=== PATIENT | female | born 1990 | race Hispanic/Latino ===

== ENCOUNTER 2021-06-15 05:34 | Emergency (ER) | payer SELFPAY ==
[2021-06-15] MEDS ORDERED: Ketorolac Tromethamine 30 MG/ML VIAL ONE (05:59)
[2021-06-15] MEDS ORDERED: Ondansetron PF 4 MG/2 ML Vial ONE (06:24)
[2021-06-15 06:39] LABS: #Basophils 0.1 10x3/uL (0.0-0.2); #Eosinphils 0.4 10x3/uL (0.0-0.5); #Monocytes 1.1 10x3/uL (0.0-1.1); #Neutrophils 9.3 10x3/uL (1.5-8.4); %Basophils 0.5 % (0.0-2.0); %Eosinophils 2.6 % (0.0-6.0); %Lymphocytes 20.1 % (18.0-47.0); %Monocytes 8.2 % (0.0-10.0); %Neutrophils 68.2 % (40.0-75.0); Hemoglobin 13.8 g/dL (12.0-15.5); Mean Corpuscular HGB CONC 32.5 g/dL (32.0-36.0); Mean Corpuscular Hemoglobin 25.8 pg (27.0-33.0); Mean Corpuscular Volume 79.4 fl (81.6-98.3); Mean Platelet Volume 10.8 fl (7.4-10.4); Platelet Count 298 10x3/uL (150-450); RBC Distribution Width 13.9 % (11.5-14.5); Red Blood Cell (RBC) Count 5.34 10x6/uL (3.90-5.03); White Blood Cell (WBC) Count 13.6 10x3/uL (3.5-10.5)
[2021-06-15 06:42] LABS: Bilirubin Neg (Negative); Blood, Urine 150 (Negative); Glucose, Urine (Dipstick) Normal (Negative); Ketone, Urine Negative (Negative); Leukocyte 500 (Negative); Nitrite Positive (Negative); Protein, Urine (Dipstick) 100 mg/dl (Neg-Trace); Specific Gravity, Urine 1.015 (1.002-1.036); Urobilinogen Normal mg/dL (Less than 2)
[2021-06-15 06:44] LABS: Clarity Clear (Clear); Pregnancy Test - Urine (BHCG) Negative (Negative); Pregu Control Background? CLEAR/WHITE (CLR/WHITE); Pregu Control Bar Appear? YES (CONTROL BAR); Specific Gravity 1.015 (1.002-1.036)
[2021-06-15 06:48] LABS: Bacteria/HPF 2+ HPF (None Seen); WBC/HPF Greater Than 50 HPF (0-3)
[2021-06-15 06:49] LABS: Squamous Epithelial 21-50 HPF (0-3)
[2021-06-15 07:00] LABS: ALT (SGPT) 46 U/L (8-55); AST (SGOT) 25 U/L (5-34); Albumin 3.9 g/dL (3.5-5.0); Alkaline Phosphatase 72 U/L (40-110); Anion Gap 15 mmol/L (10-20); BUN (Urea Nitrogen) 12 mg/dL (7.0-18.7); Bilirubin, Total 0.9 mg/dL (0.2-1.2); Calc. Creatinine Clearance 0 mL/min (70-130); Calcium 8.7 mg/dL (7.8-10.44); Carbon Dioxide 20 mmol/L (22-29); Chloride 107 mmol/L (98-107); Globulin 3.9 g/dL (2.4-3.5); Glucose 106 mg/dL (70-105); Protein, Total 7.8 g/dL (6.0-8.3); Sodium 138 mmol/L (136-145)
[2021-06-15] MEDS ORDERED: cefTRIAXone\\ROCEPHIN 2 GM VIAL ONE (08:04)
== END 2021-06-15 09:00 | disposition home or self-care (01) ==
LOC: CSHERS 05:34
DX: N10 Acute pyelonephritis (principal); N20.0 Calculus of kidney; R73.03 Prediabetes; Z79.899 Other long term (current) drug therapy
CPT/HCPCS: 74176; 80053; 81003; 81015; 81025; 85025; 96365; 96375; J0696; J1885; J2405

== ENCOUNTER 2021-07-01 17:45 | Inpatient (IN) | payer OTHER, SELFPAY ==
[2021-07-01 18:41] LABS: Bilirubin Neg (Negative); Blood, Urine 50 (Negative); Glucose, Urine (Dipstick) Normal (Negative); Ketone, Urine Negative (Negative); Leukocyte 500 (Negative); Nitrite Negative (Negative); Protein, Urine (Dipstick) Negative (Neg-Trace); Urobilinogen Normal mg/dL (Less than 2)
[2021-07-01 18:42] LABS: Clarity Clear (Clear)
[2021-07-01 18:47] LABS: Bacteria/HPF 3+ HPF (None Seen); Mucous/LPF 1+ LPF (<2+); RBC/HPF 0-3 HPF (0-3); WBC/HPF 21-50 HPF (0-3)
[2021-07-01 18:49] LABS: #Basophils 0.1 10x3/uL (0.0-0.2); #Eosinphils 0.2 10x3/uL (0.0-0.5); #Monocytes 0.9 10x3/uL (0.0-1.1); #Neutrophils 8.8 10x3/uL (1.5-8.4); %Basophils 0.5 % (0.0-2.0); %Eosinophils 1.8 % (0.0-6.0); %Lymphocytes 16.2 % (18.0-47.0); %Monocytes 7.4 % (0.0-10.0); %Neutrophils 73.4 % (40.0-75.0); Hemoglobin 12.3 g/dL (12.0-15.5); Mean Corpuscular HGB CONC 31.9 g/dL (32.0-36.0); Mean Corpuscular Hemoglobin 25.3 pg (27.0-33.0); Mean Corpuscular Volume 79.4 fl (81.6-98.3); Mean Platelet Volume 9.9 fl (7.4-10.4); Platelet Count 235 10x3/uL (150-450); RBC Distribution Width 13.6 % (11.5-14.5); Red Blood Cell (RBC) Count 4.86 10x6/uL (3.90-5.03); White Blood Cell (WBC) Count 11.9 10x3/uL (3.5-10.5)
[2021-07-01 19:02] LABS: ALT (SGPT) 39 U/L (8-55); AST (SGOT) 26 U/L (5-34); Albumin 3.6 g/dL (3.5-5.0); Alkaline Phosphatase 60 U/L (40-110); Anion Gap 13 mmol/L (10-20); BUN (Urea Nitrogen) 7 mg/dL (7.0-18.7); Bilirubin, Total 0.5 mg/dL (0.2-1.2); Calc. Creatinine Clearance 0 mL/min (70-130); Carbon Dioxide 21 mmol/L (22-29); Chloride 106 mmol/L (98-107); Globulin 3.3 g/dL (2.4-3.5); Glucose 96 mg/dL (70-105); Potassium 3.8 mmol/L (3.5-5.1); Protein, Total 6.9 g/dL (6.0-8.3); Sodium 136 mmol/L (136-145)
[2021-07-01] MEDS ORDERED: Cefepime 2 GM VIAL ONE (19:18)
[2021-07-01] MEDS ORDERED: Lactated Ringer's 1,000 ML IV SCH ×2 (23:45)
[2021-07-01 23:50] VITALS: BMI 39.4
[2021-07-01] MEDS ORDERED: [UNRECOGNIZED DRUG - OTHER] FS SCH (23:51)
[2021-07-01] MEDS ORDERED: Ondansetron ODT 4 MG TAB PO PRN (23:58)
[2021-07-01] MEDS ORDERED: Ondansetron PF 4 MG/2 ML Vial IVP PRN (23:58)
[2021-07-02] MEDS ORDERED: Cefepime 2 GM in Sodium Chloride 0.9% 100 ML IVPB SCH ×2 (00:15→12:00)
[2021-07-02] MEDS: Morphine 4 MG/ML VIAL SLOW IVP PRN ×4 (00:19→23:43)
[2021-07-02 00:54] LABS: BHCG - Serum Negative (NEGATIVE); Pregs Control Background? CLEAR/WHITE (CLR/WHITE); Pregs Control Bar Appear? YES (CONTROL BAR)
[2021-07-02] MEDS: NS 0.9% w/ 20 MEQ KCL 1,000 ML/1,000 ML BAG IV SCH ×3 (01:08→16:30)
[2021-07-02 01:22] LABS: SARS-CoV-2 NAA Rapid Test Not Detected (NotDetected)
[2021-07-02] MEDS: HYDROcodone/Acetaminophen 7.5/325 mg Tablet PO PRN ×3 (04:51→20:55)
[2021-07-02] MEDS: Cefepime 2 GM in Sodium Chloride 0.9% 100 ML IVPB SCH ×2 (05:42→17:42)
[2021-07-02 05:52] LABS: Anion Gap 13 mmol/L (10-20); BUN (Urea Nitrogen) 5 mg/dL (7.0-18.7); Calc. Creatinine Clearance 231 mL/min (70-130); Calcium 7.9 mg/dL (7.8-10.44); Carbon Dioxide 19 mmol/L (22-29); Chloride 108 mmol/L (98-107); Glucose 111 mg/dL (70-105); Magnesium 1.7 mg/dL (1.6-2.6); Potassium 4.1 mmol/L (3.5-5.1); Sodium 136 mmol/L (136-145)
[2021-07-02 06:28] LABS: #Basophils 0.1 10x3/uL (0.0-0.2); #Eosinphils 0.1 10x3/uL (0.0-0.5); #Monocytes 0.9 10x3/uL (0.0-1.1); #Neutrophils 8.9 10x3/uL (1.5-8.4); %Basophils 0.6 % (0.0-2.0); %Eosinophils 0.5 % (0.0-6.0); %Lymphocytes 19.4 % (18.0-47.0); %Monocytes 7.5 % (0.0-10.0); %Neutrophils 71.4 % (40.0-75.0); Hemoglobin 11.8 g/dL (12.0-15.5); Mean Corpuscular HGB CONC 32.6 g/dL (32.0-36.0); Mean Corpuscular Hemoglobin 25.4 pg (27.0-33.0); Mean Platelet Volume 11.4 fl (7.4-10.4); Platelet Count 207 10x3/uL (150-450); RBC Distribution Width 13.9 % (11.5-14.5); Red Blood Cell (RBC) Count 4.64 10x6/uL (3.90-5.03); White Blood Cell (WBC) Count 12.5 10x3/uL (3.5-10.5)
[2021-07-02 07:34] LABS: Platelet Morphology Comment Appears Adequate
[2021-07-02 07:37] LABS: Microcytosis SLIGHT = 6-15 cells (100X) (0-5/hpf)
[2021-07-02] MEDS ORDERED: Vancomycin HCl 1.75 GM in Sodium Chloride 0.9% 500 ML IVPB SCH (08:00)
[2021-07-02] MEDS: Enoxaparin Sodium 40 MG/0.4 ML SYRINGE SC SCH (08:25)
[2021-07-02] MEDS: Vancomycin HCl 1.5 GM in Sodium Chloride 0.9% 500 ML IVPB SCH ×3 (08:26→23:26)
[2021-07-02] MEDS ORDERED: Vancomycin HCl 2 GM in Sodium Chloride 0.9% 250 ML 300 ML IVPB SCH (12:00)
[2021-07-02 23:40] LABS: Vancomycin, Trough 16.4 ug/mL
[2021-07-03] MEDS: NS 0.9% w/ 20 MEQ KCL 1,000 ML/1,000 ML BAG IV SCH ×3 (02:57→22:01)
[2021-07-03] MEDS ORDERED: Ibuprofen 600 MG TAB PO SCH (03:30)
[2021-07-03] MEDS: Cefepime 2 GM in Sodium Chloride 0.9% 100 ML IVPB SCH ×2 (05:16→17:16)
[2021-07-03] MEDS: HYDROcodone/Acetaminophen 7.5/325 mg Tablet PO PRN ×4 (05:44→22:06)
[2021-07-03] MEDS ORDERED: Vancomycin 1.5 GRAM/300 ML BAG 1.5 GM in Premix Bag 1 BAG IVPB SCH (08:00)
[2021-07-03] MEDS: Morphine 4 MG/ML VIAL SLOW IVP PRN ×2 (08:17→14:15)
[2021-07-03] MEDS: Enoxaparin Sodium 40 MG/0.4 ML SYRINGE SC SCH (08:18)
[2021-07-03] MEDS ORDERED: FLU VACC QS2021-22(6MOS UP)/PF 60 MCG/0.5 ML SYRINGE IM ONE ×2 (09:00→11:20)
[2021-07-03] MEDS ORDERED: Senokot S 8.6-50 MG TAB PO SCH (11:15)
[2021-07-03] MEDS: Acetaminophen 325 MG TAB PO PRN (21:56)
[2021-07-04] MEDS: NS 0.9% w/ 20 MEQ KCL 1,000 ML/1,000 ML BAG IV SCH ×2 (03:23→09:38)
[2021-07-04] MEDS: Acetaminophen 325 MG TAB PO PRN (03:38)
[2021-07-04] MEDS: HYDROcodone/Acetaminophen 7.5/325 mg Tablet PO PRN (05:11)
[2021-07-04] MEDS: Cefepime 2 GM in Sodium Chloride 0.9% 100 ML IVPB SCH (05:11)
[2021-07-04 05:57] LABS: #Basophils 0.1 10x3/uL (0.0-0.2); #Eosinphils 0.3 10x3/uL (0.0-0.5); #Monocytes 0.8 10x3/uL (0.0-1.1); #Neutrophils 5.5 10x3/uL (1.5-8.4); %Basophils 0.6 % (0.0-2.0); %Eosinophils 3.4 % (0.0-6.0); %Lymphocytes 21.8 % (18.0-47.0); %Monocytes 9.3 % (0.0-10.0); %Neutrophils 64.3 % (40.0-75.0); Hemoglobin 11.5 g/dL (12.0-15.5); Mean Corpuscular HGB CONC 31.9 g/dL (32.0-36.0); Mean Corpuscular Hemoglobin 25.2 pg (27.0-33.0); Mean Corpuscular Volume 79.2 fl (81.6-98.3); Mean Platelet Volume 9.6 fl (7.4-10.4); Platelet Count 233 10x3/uL (150-450); RBC Distribution Width 13.8 % (11.5-14.5); Red Blood Cell (RBC) Count 4.56 10x6/uL (3.90-5.03); White Blood Cell (WBC) Count 8.6 10x3/uL (3.5-10.5)
[2021-07-04 06:01] LABS: Anion Gap 10 mmol/L (10-20); BUN (Urea Nitrogen) 6 mg/dL (7.0-18.7); Calc. Creatinine Clearance 227 mL/min (70-130); Calcium 8.4 mg/dL (7.8-10.44); Carbon Dioxide 25 mmol/L (22-29); Chloride 107 mmol/L (98-107); Glucose 98 mg/dL (70-105); Potassium 3.9 mmol/L (3.5-5.1); Sodium 138 mmol/L (136-145)
[2021-07-04 08:00] VITALS: BP 135/78; TEMP 97.8
[2021-07-04] MEDS ORDERED: Polyethylene Glycol 3350 17 GM Packet PO SCH (09:00)
[2021-07-04] MEDS: Enoxaparin Sodium 40 MG/0.4 ML SYRINGE SC SCH (09:38)
== END 2021-07-04 11:55 | disposition home or self-care (01) | DRG 872 ==
LOC: CSHERS 17:45 → CSHTELE 22:27
PROVIDERS: ADMIT Family Medicine; ATTEND Internal Medicine
DX: A41.9 Sepsis, unspecified organism (principal); N10 Acute pyelonephritis; R10.821 Right upper quadrant rebound abdominal tenderness; E66.9 Obesity, unspecified; K76.0 Fatty (change of) liver, not elsewhere classified; K21.9 Gastro-esophageal reflux disease without esophagitis; N20.0 Calculus of kidney; Z20.822 Contact with and (suspected) exposure to COVID-19; B96.20 Unspecified Escherichia coli [E. coli] as the cause of diseases classified elsewhere; Z98.890 Other specified postprocedural states; Z68.39 Body mass index [BMI] 39.0-39.9, adult
CPT/HCPCS: 36415; 36416; 71045; 76705; 80048; 80053; 80202; 81003; 81015; 83605; 83735; 84703; 85025; 87040; 87077; 87086; 87186; 90471; 90686; 93005; 93010; 96365; G0008; J0692; J1650; J2270; J3370; J3480; J3490; J7030; J7120; Q0162; U0002

== ENCOUNTER 2021-10-05 12:36 | Inpatient (IN) | payer SELFPAY ==
[~2021-10-05 12:36] MED LIST: Iopamidol 300 61% 100 ML VIAL FS ONE
[2021-10-05] MEDS ORDERED: Ondansetron PF 4 MG/2 ML Vial ONE (13:04)
[2021-10-05] MEDS ORDERED: Ketorolac Tromethamine 30 MG/ML VIAL ONE (13:04)
[2021-10-05 13:44] LABS: #Basophils 0.1 10x3/uL (0.0-0.2); #Monocytes 0.8 10x3/uL (0.0-1.1); %Basophils 0.4 % (0.0-2.0); %Eosinophils 0.2 % (0.0-6.0); %Lymphocytes 4.8 % (18.0-47.0); %Monocytes 4.1 % (0.0-10.0); %Neutrophils 89.9 % (40.0-75.0); Hemoglobin 14.6 g/dL (12.0-15.5); Mean Corpuscular HGB CONC 33.7 g/dL (32.0-36.0); Mean Corpuscular Hemoglobin 25.9 pg (27.0-33.0); Mean Corpuscular Volume 76.9 fl (81.6-98.3); Mean Platelet Volume 10.2 fl (7.4-10.4); Platelet Count 259 10x3/uL (150-450); Red Blood Cell (RBC) Count 5.63 10x6/uL (3.90-5.03); White Blood Cell (WBC) Count 18.9 10x3/uL (3.5-10.5)
[2021-10-05 13:49] LABS: BHCG - Serum Negative (NEGATIVE); Pregs Control Background? CLEAR/WHITE (CLR/WHITE); Pregs Control Bar Appear? YES (CONTROL BAR)
[2021-10-05 13:57] LABS: ALT (SGPT) 31 U/L (8-55); AST (SGOT) 19 U/L (5-34); Albumin 4.5 g/dL (3.5-5.0); Alkaline Phosphatase 73 U/L (40-110); Anion Gap 16 mmol/L (10-20); BUN (Urea Nitrogen) 8 mg/dL (7.0-18.7); Calc. Creatinine Clearance 0 mL/min (70-130); Calcium 9.5 mg/dL (7.8-10.44); Carbon Dioxide 21 mmol/L (22-29); Chloride 103 mmol/L (98-107); Globulin 4.3 g/dL (2.4-3.5); Glucose 112 mg/dL (70-105); Potassium 3.5 mmol/L (3.5-5.1); Protein, Total 8.8 g/dL (6.0-8.3); Sodium 136 mmol/L (136-145)
[2021-10-05] MEDS ORDERED: Bicillin LA 1.2 MILLION UNITS/2 ML SYRINGE ONE (14:52)
[2021-10-05 14:59] LABS: Bilirubin Neg (Negative); Blood, Urine 250 (Negative); Clarity Clear (Clear); Glucose, Urine (Dipstick) Normal (Negative); Ketone, Urine 50 mg/dL (Negative); Leukocyte Negative (Negative); Nitrite Negative (Negative); Protein, Urine (Dipstick) 30 mg/dl (Neg-Trace); Specific Gravity, Urine 1.015 (1.002-1.036); Urobilinogen Normal mg/dL (Less than 2)
[2021-10-05 15:06] LABS: RBC/HPF 0-3 HPF (0-3); Squamous Epithelial 0-3 HPF (0-3); WBC/HPF 0-3 HPF (0-3)
[2021-10-05 15:07] LABS: Bacteria/HPF 1+ HPF (None Seen); Mucous/LPF 1+ LPF (<2+)
[2021-10-05] MEDS ORDERED: Acetaminophen 500 MG TAB ONE (16:38)
[2021-10-05] MEDS ORDERED: Calcium Carbonate 500 MG ChewTAB PO PRN (20:39)
[2021-10-05] MEDS ORDERED: Guaifenesin DM 100-10/5 ML UDCUP PO PRN (20:39)
[2021-10-05] MEDS ORDERED: Senokot S 8.6-50 MG TAB PO PRN (20:39)
[2021-10-05] MEDS ORDERED: Zolpidem Tartrate 5 MG TAB PO PRN (20:39)
[2021-10-05] MEDS ORDERED: Morphine 2 MG/ML VIAL SLOW IVP PRN (20:43)
[2021-10-05] MEDS ORDERED: Dexamethasone 20 MG/5 ML VIAL SLOW IVP SCH (20:45)
[2021-10-05] MEDS: Lactated Ringer's 1,000 ML IV SCH (21:24)
[2021-10-05] MEDS: Ampicillin/Sulbactam 3 GM in Sodium Chloride 0.9% 100 ML IVPB SCH (21:25)
[2021-10-05] MEDS: Famotidine/PF 20 mg/2ml Vial SLOW IVP SCH (21:25)
[2021-10-05] MEDS: Ondansetron PF 4 MG/2 ML Vial IVP PRN (21:25)
[2021-10-05] MEDS: Ketorolac Tromethamine 30 MG/ML VIAL IVP SCH (21:26)
[2021-10-05 22:17] VITALS: BMI 42.5
[2021-10-05] MEDS: HYDROcodone/Acetaminophen 5/325 mg Tablet PO PRN (23:55)
[2021-10-06] MEDS: HYDROcodone/Acetaminophen 5/325 mg Tablet PO PRN ×4 (03:00→21:11)
[2021-10-06] MEDS: Ampicillin/Sulbactam 3 GM in Sodium Chloride 0.9% 100 ML IVPB SCH (03:49)
[2021-10-06 05:09] LABS: Hemoglobin 12.4 g/dL (12.0-15.5); Mean Corpuscular HGB CONC 33.5 g/dL (32.0-36.0); Mean Corpuscular Hemoglobin 25.7 pg (27.0-33.0); Mean Corpuscular Volume 76.6 fl (81.6-98.3); Mean Platelet Volume 10.7 fl (7.4-10.4); Platelet Count 222 10x3/uL (150-450); Red Blood Cell (RBC) Count 4.83 10x6/uL (3.90-5.03); White Blood Cell (WBC) Count 22.5 10x3/uL (3.5-10.5)
[2021-10-06 05:18] LABS: Anion Gap 16 mmol/L (10-20); BUN (Urea Nitrogen) 5 mg/dL (7.0-18.7); CRP (Inflammatory) 22.16 mg/dL (= or < 0.5); Calc. Creatinine Clearance 211 mL/min (70-130); Calcium 8.7 mg/dL (7.8-10.44); Carbon Dioxide 15 mmol/L (22-29); Chloride 108 mmol/L (98-107); Glucose 147 mg/dL (70-105); Potassium 3.4 mmol/L (3.5-5.1); Sodium 136 mmol/L (136-145)
[2021-10-06 05:47] LABS: MDiff Complete? YES
[2021-10-06 05:50] LABS: Band 30 % (5-11); Lymphocytes 6 % (21-51); Monocytes 3 % (0-10); Neutrophil 60 % (42-75)
[2021-10-06 05:52] LABS: Eosinophils 1 % (0-10)
[2021-10-06 05:54] LABS: Platelet Morphology Comment Appears Adequate; RBC Morphology Normal
[2021-10-06] MEDS: Ketorolac Tromethamine 30 MG/ML VIAL IVP SCH (06:39)
[2021-10-06] MEDS: Lactated Ringer's 1,000 ML IV SCH ×3 (06:40→21:00)
[2021-10-06] MEDS ORDERED: Meropenem 1 GM in Sodium Chloride 0.9% 100 ML IVPB SCH (08:45)
[2021-10-06] MEDS ORDERED: Vancomycin 1.5 GM in Premix Bag 1 BAG IVPB SCH (09:00)
[2021-10-06] MEDS ORDERED: Dexamethasone 20 MG/5 ML VIAL SLOW IVP SCH ×2 (09:00→21:00)
[2021-10-06] MEDS: Enoxaparin Sodium 40 MG/0.4 ML SYRINGE SC SCH (09:48)
[2021-10-06] MEDS: Famotidine/PF 20 mg/2ml Vial SLOW IVP SCH ×2 (09:48→21:09)
[2021-10-06] MEDS: Clindamycin/D5W 900 MG in Premix Bag 1 BAG IVPB SCH ×2 (09:50→17:48)
[2021-10-06] MEDS ORDERED: Vancomycin HCl 1.5 GM in Sodium Chloride 0.9% 250 ML 300 ML IVPB SCH ×2 (10:00→12:00)
[2021-10-06 11:43] LABS: Hemoglobin A1c 5.8 % (4.0-6.0)
[2021-10-06] MEDS: Meropenem 1 GM in Sodium Chloride 0.9% 100 ML IVPB SCH (17:46)
[2021-10-06] MEDS: Ondansetron PF 4 MG/2 ML Vial IVP PRN (18:12)
[2021-10-06] MEDS ORDERED: Dexamethasone 10 MG in Sodium Chloride 0.9% 50 ML IVPB SCH (21:00)
[2021-10-06] MEDS: Vancomycin HCl 1 GM in Sodium Chloride 0.9% 250 ML 250 ML IVPB SCH (21:09)
[2021-10-07] MEDS: Clindamycin/D5W 900 MG in Premix Bag 1 BAG IVPB SCH ×3 (00:20→16:21)
[2021-10-07] MEDS: Meropenem 1 GM in Sodium Chloride 0.9% 100 ML IVPB SCH ×3 (00:59→16:21)
[2021-10-07] MEDS: HYDROcodone/Acetaminophen 5/325 mg Tablet PO PRN ×3 (03:59→19:42)
[2021-10-07] MEDS: Vancomycin HCl 1 GM in Sodium Chloride 0.9% 250 ML 250 ML IVPB SCH ×3 (04:55→21:30)
[2021-10-07] MEDS: Lactated Ringer's 1,000 ML IV SCH ×3 (05:00→21:19)
[2021-10-07 05:22] LABS: Hemoglobin 11.6 g/dL (12.0-15.5); Mean Corpuscular HGB CONC 33.7 g/dL (32.0-36.0); Mean Corpuscular Hemoglobin 25.8 pg (27.0-33.0); Mean Corpuscular Volume 76.4 fl (81.6-98.3); Mean Platelet Volume 10.3 fl (7.4-10.4); Platelet Count 232 10x3/uL (150-450); RBC Distribution Width 13.9 % (11.5-14.5); White Blood Cell (WBC) Count 17.8 10x3/uL (3.5-10.5)
[2021-10-07 05:38] LABS: ALT (SGPT) 21 U/L (8-55); AST (SGOT) 17 U/L (5-34); Albumin 3.4 g/dL (3.5-5.0); Alkaline Phosphatase 68 U/L (40-110); Anion Gap 15 mmol/L (10-20); BUN (Urea Nitrogen) 10 mg/dL (7.0-18.7); Bilirubin, Direct 0.2 mg/dL (0.1-0.3); Bilirubin, Total 0.4 mg/dL (0.2-1.2); CRP (Inflammatory) 20.31 mg/dL (= or < 0.5); Calc. Creatinine Clearance 222 mL/min (70-130); Calcium 8.7 mg/dL (7.8-10.44); Carbon Dioxide 19 mmol/L (22-29); Cardiac Risk 5.6 (Less than 4.5); Chloride 107 mmol/L (98-107); Cholesterol 190 mg/dl (< 200 Desired); Glucose 137 mg/dL (70-105); HDL Cholesterol 34 mg/dL (>60 Neg Risk); LDL Cholesterol, Calculated 121 mg/dL; Magnesium 1.9 mg/dL (1.6-2.6); Potassium 3.8 mmol/L (3.5-5.1); Sodium 137 mmol/L (136-145); Triglycerides 175 mg/dL (Less than 150)
[2021-10-07 05:47] LABS: MDiff Complete? YES
[2021-10-07 05:49] LABS: Band 23 % (5-11); Lymphocytes 6 % (21-51); Monocytes 2 % (0-10); Neutrophil 69 % (42-75)
[2021-10-07 05:50] LABS: Platelet Morphology Comment Appears Adequate
[2021-10-07 05:51] LABS: RBC Morphology Normal
[2021-10-07] MEDS: Dexamethasone 20 MG/5 ML VIAL SLOW IVP SCH (09:20)
[2021-10-07] MEDS: Famotidine/PF 20 mg/2ml Vial SLOW IVP SCH ×2 (09:20→21:21)
[2021-10-07] MEDS: Enoxaparin Sodium 40 MG/0.4 ML SYRINGE SC SCH (09:21)
[2021-10-07] MEDS: Ondansetron PF 4 MG/2 ML Vial IVP PRN (10:45)
[2021-10-07 11:28] LABS: Vancomycin, Trough 13.9 ug/mL
[2021-10-07] MEDS: Cepastat Lozenges 1 LOZ PO PRN ×2 (16:34→19:47)
[2021-10-07] MEDS: ALUMINUM SSP SCH (21:34)
[2021-10-07] MEDS: MAGNESIUM HYDROXIDE SSP SCH (21:34)
[2021-10-07] MEDS: VISCOUS SSP SCH (21:34)
[2021-10-07] MEDS: LIDOCAINE SSP SCH (21:34)
[2021-10-07] MEDS: [UNRECOGNIZED DRUG - OTHER] SSP SCH (21:34)
[2021-10-08] MEDS: Clindamycin/D5W 900 MG in Premix Bag 1 BAG IVPB SCH ×3 (00:17→17:05)
[2021-10-08] MEDS: Meropenem 1 GM in Sodium Chloride 0.9% 100 ML IVPB SCH (00:52)
[2021-10-08] MEDS: Lactated Ringer's 1,000 ML IV SCH ×2 (05:34→11:50)
[2021-10-08 06:09] LABS: Anion Gap 16 mmol/L (10-20); BUN (Urea Nitrogen) 13 mg/dL (7.0-18.7); Calc. Creatinine Clearance 208 mL/min (70-130); Calcium 8.5 mg/dL (7.8-10.44); Carbon Dioxide 20 mmol/L (22-29); Chloride 108 mmol/L (98-107); Glucose 108 mg/dL (70-105); Potassium 3.7 mmol/L (3.5-5.1); Sodium 140 mmol/L (136-145)
[2021-10-08] MEDS: HYDROcodone/Acetaminophen 5/325 mg Tablet PO PRN ×4 (06:48→23:20)
[2021-10-08 07:12] LABS: #Basophils 0.1 10x3/uL (0.0-0.2); #Monocytes 0.8 10x3/uL (0.0-1.1); #Neutrophils 10.9 10x3/uL (1.5-8.4); %Basophils 0.3 % (0.0-2.0); %Lymphocytes 19.4 % (18.0-47.0); %Monocytes 5.3 % (0.0-10.0); %Neutrophils 73.6 % (40.0-75.0); Hemoglobin 11.9 g/dL (12.0-15.5); Mean Corpuscular HGB CONC 33.9 g/dL (32.0-36.0); Mean Corpuscular Hemoglobin 25.6 pg (27.0-33.0); Mean Corpuscular Volume 75.5 fl (81.6-98.3); Platelet Count 292 10x3/uL (150-450); RBC Distribution Width 14.2 % (11.5-14.5); Red Blood Cell (RBC) Count 4.65 10x6/uL (3.90-5.03); White Blood Cell (WBC) Count 14.8 10x3/uL (3.5-10.5)
[2021-10-08] MEDS: Vancomycin HCl 1 GM in Sodium Chloride 0.9% 250 ML 250 ML IVPB SCH (08:03)
[2021-10-08] MEDS: Dexamethasone 20 MG/5 ML VIAL SLOW IVP SCH (08:16)
[2021-10-08] MEDS: Famotidine/PF 20 mg/2ml Vial SLOW IVP SCH ×2 (08:16→21:33)
[2021-10-08] MEDS: Enoxaparin Sodium 40 MG/0.4 ML SYRINGE SC SCH (08:17)
[2021-10-08] MEDS: ALUMINUM SSP SCH ×4 (08:20→21:31)
[2021-10-08] MEDS: [UNRECOGNIZED DRUG - OTHER] SSP SCH ×4 (08:20→21:31)
[2021-10-08] MEDS: MAGNESIUM HYDROXIDE SSP SCH ×4 (08:20→21:31)
[2021-10-08] MEDS: VISCOUS SSP SCH ×4 (08:20→21:31)
[2021-10-08] MEDS: LIDOCAINE SSP SCH ×4 (08:20→21:31)
[2021-10-08] MEDS ORDERED: Benzocaine 20% Spray 60 ML CAN PO SCH (08:45)
[2021-10-08 11:19] LABS: Vancomycin, Trough 5.2 ug/mL
[2021-10-08] MEDS: Ampicillin/Sulbactam 3 GM in Sodium Chloride 0.9% 100 ML IVPB SCH ×2 (11:51→19:22)
[2021-10-09] MEDS: Ampicillin/Sulbactam 3 GM in Sodium Chloride 0.9% 100 ML IVPB SCH ×5 (00:12→23:48)
[2021-10-09] MEDS: Clindamycin/D5W 900 MG in Premix Bag 1 BAG IVPB SCH ×4 (01:09→23:48)
[2021-10-09] MEDS: Lactated Ringer's 1,000 ML IV SCH (01:18)
[2021-10-09 04:14] LABS: #Basophils 0.1 10x3/uL (0.0-0.2); #Monocytes 0.8 10x3/uL (0.0-1.1); #Neutrophils 6.5 10x3/uL (1.5-8.4); %Basophils 0.4 % (0.0-2.0); %Lymphocytes 32.5 % (18.0-47.0); %Monocytes 7.3 % (0.0-10.0); %Neutrophils 57.3 % (40.0-75.0); Hemoglobin 12.2 g/dL (12.0-15.5); Mean Corpuscular HGB CONC 33.7 g/dL (32.0-36.0); Mean Corpuscular Hemoglobin 25.7 pg (27.0-33.0); Mean Corpuscular Volume 76.4 fl (81.6-98.3); Mean Platelet Volume 10.2 fl (7.4-10.4); Platelet Count 315 10x3/uL (150-450); Red Blood Cell (RBC) Count 4.74 10x6/uL (3.90-5.03); White Blood Cell (WBC) Count 11.3 10x3/uL (3.5-10.5)
[2021-10-09 04:32] LABS: Anion Gap 14 mmol/L (10-20); BUN (Urea Nitrogen) 10 mg/dL (7.0-18.7); Calc. Creatinine Clearance 205 mL/min (70-130); Calcium 8.3 mg/dL (7.8-10.44); Carbon Dioxide 26 mmol/L (22-29); Chloride 104 mmol/L (98-107); Glucose 117 mg/dL (70-105); Potassium 3.5 mmol/L (3.5-5.1); Sodium 140 mmol/L (136-145)
[2021-10-09] MEDS: Ondansetron PF 4 MG/2 ML Vial IVP PRN (06:08)
[2021-10-09] MEDS: HYDROcodone/Acetaminophen 5/325 mg Tablet PO PRN (06:25)
[2021-10-09] MEDS: Famotidine/PF 20 mg/2ml Vial SLOW IVP SCH ×2 (07:44→22:14)
[2021-10-09] MEDS: [UNRECOGNIZED DRUG - OTHER] SSP SCH ×4 (07:46→22:03)
[2021-10-09] MEDS: MAGNESIUM HYDROXIDE SSP SCH ×4 (07:46→22:03)
[2021-10-09] MEDS: Enoxaparin Sodium 40 MG/0.4 ML SYRINGE SC SCH (07:46)
[2021-10-09] MEDS: LIDOCAINE SSP SCH ×4 (07:46→22:03)
[2021-10-09] MEDS: VISCOUS SSP SCH ×4 (07:46→22:03)
[2021-10-09] MEDS: ALUMINUM SSP SCH ×4 (07:46→22:03)
[2021-10-09] MEDS ORDERED: Lisinopril 5 MG TAB PO SCH (09:30)
[2021-10-09] MEDS ORDERED: Lisinopril 2.5 MG TAB PO SCH (09:30)
[2021-10-09] MEDS ORDERED: Potassium Chloride 20 MEQ TAB PO SCH (10:00)
[2021-10-09] MEDS ORDERED: Spironolactone 25 MG TAB PO SCH (10:15)
[2021-10-09] MEDS: Metoprolol Tartrate 25 MG TAB PO SCH ×2 (12:14→22:04)
[2021-10-09] MEDS: Acetaminophen 325 MG TAB PO PRN ×2 (14:43→19:07)
[2021-10-09] MEDS ORDERED: diphenhydrAMINE 12.5 MG/5 ML UDCUP ONE (20:47)
[2021-10-10 04:50] LABS: Anion Gap 18 mmol/L (10-20); BUN (Urea Nitrogen) 10 mg/dL (7.0-18.7); Calc. Creatinine Clearance 205 mL/min (70-130); Calcium 8.3 mg/dL (7.8-10.44); Carbon Dioxide 22 mmol/L (22-29); Chloride 104 mmol/L (98-107); Glucose 83 mg/dL (70-105); Magnesium 1.9 mg/dL (1.6-2.6); Potassium 3.6 mmol/L (3.5-5.1); Sodium 140 mmol/L (136-145)
[2021-10-10 05:18] LABS: Platelet Count 287 10x3/uL (150-450)
[2021-10-10 05:19] LABS: #Basophils 0.1 10x3/uL (0.0-0.2); #Eosinphils 0.1 10x3/uL (0.0-0.5); #Monocytes 0.7 10x3/uL (0.0-1.1); #Neutrophils 3.6 10x3/uL (1.5-8.4); %Basophils 0.8 % (0.0-2.0); %Eosinophils 0.8 % (0.0-6.0); %Lymphocytes 49.9 % (18.0-47.0); %Monocytes 7.1 % (0.0-10.0); %Neutrophils 36.8 % (40.0-75.0); Hemoglobin 13.6 g/dL (12.0-15.5); Mean Corpuscular HGB CONC 33.8 g/dL (32.0-36.0); Mean Corpuscular Hemoglobin 25.6 pg (27.0-33.0); Mean Corpuscular Volume 75.6 fl (81.6-98.3); Mean Platelet Volume 11.7 fl (7.4-10.4); RBC Distribution Width 14.2 % (11.5-14.5); Red Blood Cell (RBC) Count 5.32 10x6/uL (3.90-5.03); White Blood Cell (WBC) Count 9.9 10x3/uL (3.5-10.5)
[2021-10-10 06:08] LABS: Platelet Morphology Comment PLT clumps seen-ADEQ; RBC Morphology Normal
[2021-10-10] MEDS: Ampicillin/Sulbactam 3 GM in Sodium Chloride 0.9% 100 ML IVPB SCH ×2 (06:35→13:04)
[2021-10-10] MEDS ORDERED: Potassium Chloride 20 MEQ TAB PO SCH (08:00)
[2021-10-10] MEDS ORDERED: Magnesium 2 GM/50 ML(in water) 2 GM in Premix Bag 1 BAG IVPB SCH (08:00)
[2021-10-10] MEDS ORDERED: Spironolactone 25 MG TAB PO SCH (08:00)
[2021-10-10] MEDS: LIDOCAINE SSP SCH ×2 (08:34→13:18)
[2021-10-10] MEDS: [UNRECOGNIZED DRUG - OTHER] SSP SCH ×2 (08:34→13:18)
[2021-10-10] MEDS: ALUMINUM SSP SCH ×2 (08:34→13:18)
[2021-10-10] MEDS: MAGNESIUM HYDROXIDE SSP SCH ×2 (08:34→13:18)
[2021-10-10] MEDS: Clindamycin/D5W 900 MG in Premix Bag 1 BAG IVPB SCH (08:34)
[2021-10-10] MEDS: VISCOUS SSP SCH ×2 (08:34→13:18)
[2021-10-10] MEDS: Enoxaparin Sodium 40 MG/0.4 ML SYRINGE SC SCH (08:35)
[2021-10-10] MEDS: Metoprolol Tartrate 25 MG TAB PO SCH (08:35)
[2021-10-10] MEDS ORDERED: Lisinopril 5 MG TAB PO SCH (09:00)
[2021-10-10] MEDS ORDERED: Famotidine 20 MG TAB PO SCH (09:00)
[2021-10-10] MEDS ORDERED: Aspirin 325 mg Enteric Coated Tablet PO SCH (10:00)
[2021-10-10 10:47] LABS: Troponin I Less than 0.010 ng/mL (< 0.028)
[2021-10-10 12:07] VITALS: BP 119/80; TEMP 97.9
[2021-10-10 13:29] LABS: Troponin I Less than 0.010 ng/mL (< 0.028)
[2021-10-10] MEDS ORDERED: Atorvastatin Calcium 40 MG TAB PO SCH (21:00)
[2021-10-12] MEDS ORDERED: Aspirin 81 mg Enteric Coated Tablet PO SCH (09:00)
== END 2021-10-10 16:00 | disposition home or self-care (01) | DRG 871 ==
LOC: CSHERS 12:36 → CSHTELE 19:59
PROVIDERS: ADMIT Family Medicine; ATTEND Family Medicine
DX: A40.0 Sepsis due to streptococcus, group A (principal); I50.21 Acute systolic (congestive) heart failure; Z68.41 Body mass index [BMI] 40.0-44.9, adult; I42.9 Cardiomyopathy, unspecified; J02.0 Streptococcal pharyngitis; H92.02 Otalgia, left ear; R73.03 Prediabetes; E86.0 Dehydration; R73.9 Hyperglycemia, unspecified; E66.01 Morbid (severe) obesity due to excess calories; D50.9 Iron deficiency anemia, unspecified; I11.0 Hypertensive heart disease with heart failure; E87.6 Hypokalemia; Z20.822 Contact with and (suspected) exposure to COVID-19; Z79.2 Long term (current) use of antibiotics; Z79.899 Other long term (current) drug therapy; Z79.891 Long term (current) use of opiate analgesic; Z98.890 Other specified postprocedural states; Z86.16 Personal history of COVID-19; Z82.49 Family history of ischemic heart disease and other diseases of the circulatory system; Z82.3 Family history of stroke
CPT/HCPCS: 36415; 36416; 70491; 71045; 80048; 80053; 80061; 80076; 80202; 81003; 81015; 83036; 83540; 83605; 83735; 83880; 84145; 84443; 84484; 84703; 85025; 86140; 87040; 87081; 87430; 93005; 93010; 93306; 96361; 96372; 96374; 96375; J0295; J0561; J1100; J1650; J1885; J2185; J2405; J3370; J3475; J3490; J7050; J7120; Q0163; Q9967; S0028; U0003; U0005

== ENCOUNTER 2023-05-10 04:12 | Emergency (ER) | payer SELFPAY ==
[2023-05-10] MEDS ORDERED: Ibuprofen 200 MG TAB ONE (05:02)
[2023-05-10] MEDS ORDERED: guaiFENesin ER 600 MG TAB PO SCH (05:15)
[2023-05-10 06:06] LABS: ALT (SGPT) 44 U/L (8-55); Albumin 3.8 g/dL (3.5-5.0); Alkaline Phosphatase 63 U/L (40-110); Anion Gap 18 mmol/L (10-20); BUN (Urea Nitrogen) 11 mg/dL (7.0-18.7); Bilirubin, Total 0.3 mg/dL (0.2-1.2); Calc. Creatinine Clearance 0 mL/min (70-130); Calcium 8.7 mg/dL (7.8-10.44); Carbon Dioxide 18 mmol/L (22-29); Chloride 107 mmol/L (98-107); Estimated GFR 112; Globulin 4.1 g/dL (2.4-3.5); Glucose 89 mg/dL (70-105); Potassium 3.5 mmol/L (3.5-5.1); Protein, Total 7.9 g/dL (6.0-8.3); Sodium 139 mmol/L (136-145)
[2023-05-10 06:11] LABS: AST (SGOT) 34 U/L (5-34); Magnesium 1.8 mg/dL (1.6-2.6)
[2023-05-10 06:12] LABS: #Basophils 0.1 10x3/uL (0.0-0.2); #Eosinphils 0.1 10x3/uL (0.0-0.5); #Neutrophils 4.5 10x3/uL (1.5-8.4); %Basophils 0.7 % (0.0-2.0); %Eosinophils 0.7 % (0.0-6.0); %Lymphocytes 31.8 % (18.0-47.0); %Monocytes 11.6 % (0.0-10.0); %Neutrophils 54.8 % (40.0-75.0); Hematocrit 41.7 % (34.9-44.5); Hemoglobin 13.6 g/dL (12.0-15.5); Mean Corpuscular HGB CONC 32.6 g/dL (32.0-36.0); Mean Corpuscular Hemoglobin 25.4 pg (27.0-33.0); Mean Corpuscular Volume 77.8 fl (81.6-98.3); Mean Platelet Volume 11.1 fl (7.4-10.4); Platelet Count 248 10x3/uL (150-450); RBC Distribution Width 13.8 % (11.5-14.5); Red Blood Cell (RBC) Count 5.36 10x6/uL (3.90-5.03); White Blood Cell (WBC) Count 8.2 10x3/uL (3.5-10.5)
[2023-05-10 08:16] LABS: BHCG - Serum Negative (NEGATIVE); Pregs Control Background? CLEAR/WHITE (CLR/WHITE); Pregs Control Bar Appear? YES (CONTROL BAR)
== END 2023-05-10 08:57 | disposition home or self-care (01) ==
LOC: CSHERS 04:12
DX: J06.9 Acute upper respiratory infection, unspecified (principal); I11.0 Hypertensive heart disease with heart failure; I50.9 Heart failure, unspecified; Z79.899 Other long term (current) drug therapy
CPT/HCPCS: 36415; 71045; 80053; 83605; 83735; 84703; 85025

== ENCOUNTER 2024-02-02 09:03 | Emergency (ER) | payer SELFPAY ==
[2024-02-02 10:00] LABS: #Basophils 0.06 10x3/uL (0.0-0.2); #Eosinphils 0.22 10x3/uL (0.0-0.5); #Monocytes 0.55 10x3/uL (0.0-1.1); #Neutrophils 5.22 10x3/uL (1.5-8.4); %Basophils 0.7 % (0.0-2.0); %Eosinophils 2.6 % (0.0-6.0); %Lymphocytes 27.5 % (18.0-47.0); %Monocytes 6.6 % (0.0-10.0); %Neutrophils 62.2 % (40.0-75.0); Hematocrit 39.4 % (34.9-44.5); Hemoglobin 12.3 g/dL (12.0-15.5); Mean Corpuscular HGB CONC 31.2 g/dL (32.0-36.0); Mean Corpuscular Hemoglobin 25.1 pg (27.0-33.0); Mean Corpuscular Volume 80.4 fL (81.6-98.3); Mean Platelet Volume 9.7 fL (7.4-10.4); Platelet Count 290 10x3/uL (150-450); RBC Distribution Width 13.8 % (11.5-14.5); White Blood Cell (WBC) Count 8.4 10x3/uL (3.5-10.5)
[2024-02-02] MEDS ORDERED: Dicyclomine 20 MG/2 ML VIAL ONE (10:15)
[2024-02-02] MEDS ORDERED: Ondansetron PF 4 MG/2 ML Vial ONE (10:15)
[2024-02-02 10:17] LABS: ALT (SGPT) 26 U/L (8-55); AST (SGOT) 18 U/L (5-34); Albumin 3.2 g/dL (3.5-5.0); Alkaline Phosphatase 60 U/L (40-110); Anion Gap 12 mmol/L (10-20); BUN (Urea Nitrogen) 12 mg/dL (7.0-18.7); Bilirubin, Total 0.5 mg/dL (0.2-1.2); Calc. Creatinine Clearance 0 mL/min (70-130); Calcium 8.8 mg/dL (7.8-10.44); Carbon Dioxide 21 mmol/L (22-29); Chloride 109 mmol/L (98-107); Estimated GFR 118; Globulin 3.7 g/dL (2.4-3.5); Glucose 94 mg/dL (70-105); Lipase 19 U/L (8-78); Potassium 3.9 mmol/L (3.5-5.1); Protein, Total 6.9 g/dL (6.0-8.3); Sodium 138 mmol/L (136-145)
[2024-02-02 10:20] LABS: Troponin I Less than 0.010 ng/mL (< 0.028)
[2024-02-02 10:25] LABS: Bilirubin Neg (Negative); Blood, Urine 10 (Negative); Clarity Clear (Clear); Glucose, Urine (Dipstick) Normal (Negative); Ketone, Urine Negative (Negative); Leukocyte Negative (Negative); Nitrite Negative (Negative); Protein, Urine (Dipstick) Negative (Neg-Trace); Urobilinogen Normal mg/dL (Less than 2)
[2024-02-02 10:27] LABS: Pregnancy Test - Urine (BHCG) Negative (Negative)
[2024-02-02 10:28] LABS: Pregu Control Background? CLEAR/WHITE (CLR/WHITE); Pregu Control Bar Appear? YES (CONTROL BAR)
[2024-02-02 10:52] LABS: Influenza A by NAA Not Detected (NotDetected); Influenza B by NAA Not Detected (NotDetected); SARS-CoV-2 NAA Rapid Test Not Detected (NotDetected)
[2024-02-02 10:52] LABS: Bacteria/HPF 1+ HPF (None Seen); CAUTI Indications for Culture Pelvic or flank pain; RBC/HPF 0-3 HPF (0-3); Squamous Epithelial 0-3 HPF (0-3); WBC/HPF 0-3 HPF (0-3)
[2024-02-02 10:53] LABS: Urine Culture Reflex No No
[2024-02-02] MEDS ORDERED: Ketorolac Tromethamine 30 MG (1 mL) VIAL ONE (12:45)
== END 2024-02-02 14:23 | disposition home or self-care (01) ==
LOC: CSHERS 09:03
DX: R10.11 Right upper quadrant pain (principal); R19.7 Diarrhea, unspecified; R51.9 Headache, unspecified; I10 Essential (primary) hypertension; Z55.0 Illiteracy and low-level literacy
CPT/HCPCS: 36415; 74176; 76705; 80053; 81001; 81025; 83605; 83690; 83880; 84484; 85025; 93005; 96361; 96372; 96374; 96375; J1885; J2405

== ENCOUNTER 2024-04-27 11:51 | Emergency (ER) | payer SELFPAY ==
[2024-04-27] MEDS ORDERED: Dexamethasone 10 MG/ML VIAL ONE (12:45)
[2024-04-27] MEDS ORDERED: Ketorolac Tromethamine 30 MG (1 mL) VIAL ONE (12:45)
[2024-04-27] MEDS ORDERED: Benzonatate 100 MG CAP ONE (12:46)
[2024-04-27] MEDS ORDERED: Ipratropium/Albuterol 3 ML NEB ONE ×2 (12:48→15:33)
[2024-04-27 15:53] LABS: Pregnancy Test - Urine (BHCG) Negative (Negative)
[2024-04-27 15:57] LABS: Pregu Control Background? CLEAR/WHITE (CLR/WHITE); Pregu Control Bar Appear? YES (CONTROL BAR); Specific Gravity 1.025 (1.002-1.036)
== END 2024-04-27 16:04 | disposition home or self-care (01) ==
LOC: CSHERS 11:51
DX: J11.1 Influenza due to unidentified influenza virus with other respiratory manifestations (principal); I11.0 Hypertensive heart disease with heart failure; I50.9 Heart failure, unspecified
CPT/HCPCS: 71046; 81025; 87428; 93005; 94640; 96372; J1100; J1885; J7620